=== PATIENT | male | born 2000 | race Caucasian/White ===

== ENCOUNTER → 2020-02-25 11:21 | Outpatient (CLI) | payer OTHER, SELFPAY ==
[2020-02-26 09:11] LABS: COVID19 Sendout Not Detected (Not Detect)
== END ==
PROVIDERS: Visit Provider Physician Assistant
DX: Z11.59 Encounter for screening for other viral diseases (principal)
CPT/HCPCS: 87635

== ENCOUNTER 2020-02-28 07:17 | Day surgery (SDC) | payer OTHER, SELFPAY ==
--- NOTE | 2020-02-28 | PATH_ITS ---
[facility] Accession Number: [id number] . 01 Material submitted: . gastrointestinal site - RANDOM GASTRIC BIOPSY . 02 Diagnosis: Stomach, Biopsies: Gastric antral mucosa with mild chronic inflammation. Negative for Helicobacter organisms by immunohistochemistry. Negative for intestinal metaplasia. Negative for dysplasia or malignancy. [facility] 03/01/2020 1347 Local . 02 Electronically signed: . Cristhian Eisenberg MD, PhD, Pathologist NPI- [id number] . 01 Gross description: . RANDOM GASTRIC BIOPSY: Received in formalin are 2 fragment(s) of [place], soft tissue measuring 0.1 x 0.1 x 0.1 cm to 0.2 x 0.1 x 0.1 cm submitted entirely in 1 cassette(s) /SARKIS 02/28/20202051 Local . 02 Microscopic: . An immunohistochemical stain was performed to evaluate for Helicobacter organisms and is negative. The control stain showed appropriate reactivity. . * This test was developed and its performance characteristics determined by [facility]. It has not been cleared or approved by the U.S. Food and Drug Administration. The FDA has determined that such clearance or approval is not necessary. This test is used for clinical purposes. It should not be regarded as investigational or for research. . 02 Pathologist provided ICD-10: R10.13, K29.70 . 02 CPT . 762582, X63380 Performed at: 01 [facility] [address], [place], [place] [id number] MD Ej Vargas MD Phone: [phone] Performed at: 02 [facility] [place] [address] [place], [place] [id number] MD Cintia Bonner MD Phone: [phone]
[2020-02-28 07:48] VITALS: BP 115/77; PULSE 58; RESP 14; TEMP 36.2; O2SAT 98; BMI 19.6
[2020-02-28] MEDS: LACTATED RINGERS 1,000 ML 200 ML IV (07:50)
--- NOTE | 2020-02-28 08:25 | PM.PREOP ---
Pre-operative Note COVID-19 COVID-19 status: Negative Result date/Date tested (Pos, Neg/Pending): 02/25/20 Interval Note History & Physical reviewed/Exam performed by Physician: Yes Changes to H&P: No ASA Class (for procedural sedation): I
[2020-02-28] MEDS: LIDOCAINE 4% SOLN 50 ML 20 ML TOP (08:53)
[2020-02-28] MEDS: MIDAZOLAM 5 MG/5 ML VIAL IV (08:54)
[2020-02-28] MEDS: fentaNYL 250 MCG/5 ML INJ IV (08:54)
--- NOTE | 2020-02-28 08:54 | PM.OP.ENDO ---
Operative Date/Time/Diagnoses Date of procedure: 02/28/20 Time of procedure: 08:55 Pre-op diagnosis: Gastroesophageal reflux disease Post-op diagnosis: same Procedure & Clinicians Study performed: Esophagoduodenoscopy Same procedure as scheduled: Yes Indications: 19-year-old male with medically refractory GERD presents for EGD Surgeon: Abel Gonzalez Procedure Notes SCOAP/Timeout: Performed Procedure in detail: Patient placed in left lateral decubitus position. Time out was performed. Procedural sedation was administered with Versed and Fentanyl. A bite block was placed. the scope was inserted into the mouth and advanced through the esophagus and into the stomach. The pylorus was intubated and the duodenum was normal. The scope was retroflexed within the stomach and there was moderate size hiatal hernia. No ulcers, there was mild gastritis and several random gastric biopsies were taken with the forceps hemostasis was observed. The scope was withdrawn into the esophagus the Z line was seen at 35 cm from the incisions. There was no miranda's esophagitis or masses or strictures. Stomach was desufflated and scope removed. Patient tolerated procedure well. Sedation minutes: 8 Findings: gastritis and hiatal hernia Specimen(s): other (gastric) Complications: none Impression: gastritis, hiatal hernia Post-procedure Recommendations: Other recommendation (increase omeprazole to 40 mg BID) Follow up: as needed Disposition: same day surgery
[2020-02-28 08:55] VITALS: BP 106/66; PULSE 75; RESP 21; TEMP 36.7; O2SAT 98
[2020-02-28 09:00] VITALS: BP 112/61; PULSE 56; RESP 18; O2SAT 97
[2020-02-28 09:05] VITALS: BP 111/80; PULSE 73; RESP 11; O2SAT 97
[2020-02-28 09:10] VITALS: BP 107/60; PULSE 64; RESP 12; O2SAT 97
[2020-02-28 09:15] VITALS: BP 123/76; PULSE 58; RESP 10; TEMP 36.7; O2SAT 100
== END 2020-02-28 09:30 | disposition home or self-care (01) ==
PROVIDERS: Referring Provider Surgery; Visit Provider Surgery
PROC: 0DJ08ZZ Inspection of Upper Intestinal Tract, Via Natural or Artificial Opening Endoscopic (ICD-10-PCS; CPT 43235; principal; 2020-02-28 08:30)
DX: K29.50 Unspecified chronic gastritis without bleeding (principal); K21.9 Gastro-esophageal reflux disease without esophagitis; K44.9 Diaphragmatic hernia without obstruction or gangrene
CPT/HCPCS: 43239; 99152; J2250; J3010